=== PATIENT | male | born 1995 | race Two or more races ===

== ENCOUNTER 2020-01-13 22:38 | Emergency (ER) | payer MEDICAID, OTHER ==
[~2020-01-13] VITALS: Ht 182.9 cm; Wt 86.6 kg
--- NOTE | 2020-01-13 22:54 | NUR ---
BIBS FOR C/O 3 LACERATIONS ON THE L PALM OF HIS HAND. SUPERFICIAL, NO ACTIVE BLEEDING.
--- NOTE | 2020-01-13 22:56 | NUR ---
AT THE BED SIDE
--- NOTE | 2020-01-13 23:35 | NUR ---
Patient discharged to home in stable condition. Written and verbal after care instructions given. Patient verbalizes understanding of instruction. dressing on the L hand c/d/i w/ no bleeding.
[2020-01-13 23:58] VITALS: BP 119/75
== END 2020-01-13 23:35 | disposition home or self-care (01) ==
LOC: ER 22:39
DX: S61.412A Laceration without foreign body of left hand, initial encounter (principal); W25.XXXA Contact with sharp glass, initial encounter; Y93.89 Activity, other specified; Y92.89 Other specified places as the place of occurrence of the external cause; Y99.8 Other external cause status
CPT/HCPCS: 12001; 99282; A6403